=== PATIENT | female | born 1970 | race Caucasian/White ===

== ENCOUNTER 2016-04-12 23:47 | Inpatient (IN) | payer BC ==
--- NOTE | ~2016-04-12 | DS ---
Discharge Summary [facility] [address] [place]. [address] NAME: CHAD STACK : 66 STATUS : DIS IN PAT#: [id number] AGE: 46 ADM/REG DATE : 04/13/16 MR#: [id number] REPORT SERV DATE: 04/15/16 DICTATED BY: PANCHITO ANG DATE: 04/14/16 REPORT STATUS : Draft TRANSCRIBED BY: MODYaw DATE: 04/14/16 ADMISSION DATE: 04/13/2016 DISCHARGE DATE: 04/14/2016 DISCHARGE DIAGNOSES: 1. Paroxysmal atrial fibrillation, currently in sinus rhythm. 2. Hypothyroidism. CONSULTANTS DURING THIS HOSPITALIZATION: Dr. Roland Fairchild of cardiology. INVASIVE PROCEDURES DONE DURING THIS HOSPITALIZATION: None. BRIEF HISTORY OF PRESENT ILLNESS: The patient is a 46-year-old female presented with rapid atrial fibrillation in the emergency room that would not convert with carotid massage, so she was admitted. For detailed history and physical exam, please see note dictated by Betito Nicole, on 04/13/2016. HOSPITAL COURSE: After being admitted to the hospital, this patient was observed. She was initially given rate control medication including Cardizem. She was started on sotalol, and she had not been started on Synthroid. Her TSH was 0.9. Cardiology saw the patient in consultation and continued her Cardizem and then added sotalol. Once the sotalol was added, this patient converted to sinus rhythm. During this time, she was also started on Eliquis. Dr. Fairchild has seen the patient this morning and recommended that she can go home with Eliquis and sotalol. When I talked to the patient, this patient reported that she drinks quite a bit of caffeine. She was asked to scale back on her caffeine intake, and since she is noted to have a TSH that is elevated with a prior history of hypothyroidism, we have recommended that she start on Synthroid. Prescription for that in fact has been given, and she will need a primary care followup. All other parameters remained stable, and she is being discharged in stable condition. DISCHARGE DISPOSITION: Home. DISCHARGE ACTIVITY: As tolerated. DISCHARGE DIET: Low-sodium diet. DISCHARGE MEDICATIONS: Synthroid 25 mcg one tablet once daily, vitamin B12 of 100 mcg once daily, coenzyme Q10, multivitamins one tablet daily, sotalol 60 mg twice daily, Eliquis 5 mg twice daily, Krill oil per the patient's regimen, and glucosamine per the patient's regimen. DISCHARGE FOLLOWUP: With Dr. Roland Fairchild in three to four weeks, with Dr. Philippe Loyd in three to four weeks for further management of her hypothyroidism. More than 30 minutes spent planning this patient's discharge, reconciling medications, writing prescriptions, discussing hospital care, and followup with the patient and documenting this discharge. [address] Summary [address] [place] [address] NAME: CHAD STACK : 66 STATUS : DIS IN PAT#: [id number] AGE: 46 ADM/REG DATE : 04/13/16 MR#: [id number] REPORT SERV DATE: 04/15/16 DICTATED BY: PANCHITO ANG DATE: 04/14/16 REPORT STATUS : Draft TRANSCRIBED BY: LUDIN DATE: 04/14/16 JAGDISH/LUDIN Panchito Ang M.D. / [id number]
--- NOTE | ~2016-04-12 | HP ---
History And Physical [address] [place]. [address] NAME: CHAD STACK : 66 STATUS : ADM IN [facility]#: [id number] AGE: 46 ADM/REG DATE : 04/13/16 MR#: [id number] REPORT SERV DATE: 04/13/16 DICTATED BY: BETITO DAVIS DATE: 04/13/16 REPORT STATUS : Draft TRANSCRIBED BY: MODL DATE: 04/13/16 DATE OF ADMISSION: 04/12/2016 CHIEF COMPLAINT: Palpitations. HISTORY OF PRESENT ILLNESS: This is a 46-year-old lady with history of atrial fibrillation episode in the past, presenting with palpitations. The patient reports that she was going about a normal day up until 9 p.m. when she developed palpitations. The patient has had an episode of atrial fibrillation in the past and she was at that time seen and evaluated by a side boss. The patient was able to revert to normal sinus rhythm and thus the patient has not been maintained on any medications. The patient does have episodes of atrial fibrillation every once in a while that usually respond to carotid massage or bearing down. Unfortunately, this episode persisted despite carotid massage and bearing down and thus she decided to come to the ER for further evaluation and care. The patient otherwise denies having had any chest pain or shortness of breath or lightheadedness. In the ER, the patient was found to be afebrile. The patient was found to be in atrial fibrillation with RVR with heart rate in the 150s. The patient was otherwise hemodynamically stable. Initial lab evaluation was actually all very benign. EKG confirmed atrial fibrillation with RVR. Internal Medicine consultation was requested for admission of the patient for further evaluation and care. REVIEW OF SYSTEMS: The patient denies any fevers or chills. Also, 14-point review of systems reviewed and negative other than mentioned above. MEDICATIONS: None other than [id number] supplements. ALLERGIES: FLAGYL. PAST MEDICAL HISTORY: 1. Atrial fibrillation episode in the past, not maintained on any therapy. 2. Hypothyroidism in the past, again not on any medications. PAST SURGICAL HISTORY: Cholecystectomy. FAMILY HISTORY: Multiple family members have atrial fibrillation and the patient's mother in particular had 2 ablations. SOCIAL HISTORY: The patient does not smoke. Consumes alcohol socially. The patient does not use any illicit drugs. The patient lives at home with her . The patient works for [employer]. PHYSICAL EXAMINATION: VITAL SIGNS: Temperature 97.8, blood pressure 136/101, pulse 151, respiratory rate is 18, saturating 100% on room air. History And Physical [address] [address] NAME: CHAD STACK : 66 STATUS : ADM IN [facility]#: [id number] AGE: 46 ADM/REG DATE : 04/13/16 MR#: [id number] REPORT SERV DATE: 04/13/16 DICTATED BY: BETITO DAVIS DATE: 04/13/16 REPORT STATUS : Draft TRANSCRIBED BY: MODL DATE: 04/13/16 NEUROLOGIC: The patient is alert and oriented x3 with no focal neurologic deficits. GENERAL: The patient is awake, does not appear to be in acute distress, and she is cooperative. NECK: No JVD. No lymphadenopathy. Normal thyroid. CHEST: No midline sternotomy scar and no tenderness to palpation. Lungs are clear to auscultation bilaterally with normal respiratory effort on room air. CARDIOVASCULAR: The patient is tachycardic with irregular rhythm. Otherwise, no murmurs, rubs, or gallops, and PMI is nondisplaced. ABDOMEN: Soft, nontender, with active bowel sounds and no organomegaly. EXTREMITIES: No edema. Normal distal pulses. No calf tenderness. SKIN: Clean, dry, warm, and intact. LABORATORY DATA: Sodium is 144, potassium 3.7, chloride 106, BUN 18, creatinine 0.90, glucose 104, calcium 8.9, magnesium 2.0. White blood cell count is 9.1, hemoglobin 13.6, platelets 225. INR is 1.0. Troponin is less than 0.02. TSH is 9.6. D-dimer was negative and EKG confirmed an atrial fibrillation with RVR. Chest x-ray from my personal interpretation is within normal limits. ASSESSMENT: This is a 46-year-old lady with history of having had atrial fibrillation in the past, presenting with atrial fibrillation with rapid ventricular response. 1. Atrial fibrillation with rapid ventricular response. 2. Hypothyroidism, untreated. PLAN: My plan is to admit the patient under telemetry monitoring. The patient will be given IV fluid resuscitation. The patient will be maintained on Cardizem drip for now. I will check serial troponins and an echocardiogram. I will also check free T4 level. I will start heparin drip and get Cardiology to see her. Standard DVT prophylaxis. The patient is full code at this time. YSCandis/GEOVANNAL Betito Davis MD / [id number] CC: Philippe Loyd M.D. Philippe Loyd M.D.
--- NOTE | ~2016-04-12 | CN ---
Consultation Report [address] [facility] [place]. [address] NAME: CHAD FLEMING : 66 STATUS : ADM IN [facility]#: [id number] AGE: 46 ADM/REG DATE : 04/13/16 MR#: [id number] REPORT SERV DATE: 04/13/16 DICTATED BY: SVETLANA QUEZADA DATE: 04/13/16 REPORT STATUS : Draft TRANSCRIBED BY: MODL DATE: 04/13/16 CARDIOLOGY CONSULT DATE OF CONSULTATION: 04/13/[address] The patient admitted to Dr. Ang. HISTORY OF PRESENT ILLNESS: Ms Fleming is a 46-year-old white female who works for [employer]. Very strong family history of atrial fibrillation. Her mother's had two ablations with Dr. Gab Cotter. She has had short runs of atrial fibrillation over the years, but always controlled with vagal maneuvers. This episode was not controlled, and she comes in with a heart rate around 130. She does feel the palpitations, but has not had any chest discomfort. Her TSH is 9.6. Negative troponin. Negative D-dimer. She is currently on heparin and diltiazem drip. She did receive a dose of Eliquis in the ER around 1 a.m. PAST MEDICAL HISTORY: As outlined above. ALLERGIES: METRONIDAZOLE. MEDICATIONS: Include coenzyme Q10, cyanocobalamin, glucosamine, Krill oil, multivitamin. SOCIAL HISTORY: Nonsmoker. FAMILY HISTORY: For atrial fibrillation. SURGICAL HISTORY: Cholecystectomy. REVIEW OF SYSTEMS: Otherwise all negative. PHYSICAL EXAMINATION: VITAL SIGNS: Her heart rate is around 130. Her blood pressure around 130/100. GENERAL: The patient is comfortable appearing white female. Alert and oriented x3. No apparent distress. HEENT: Pupils equal, round, and reactive to light and accommodation. Extraocular muscles are intact. NECK: Supple. Trachea midline. No carotid bruits. CHEST: Clear. HEART: PMI in midclavicular line. Irregular rate and rhythm. No significant murmur. ABDOMEN: Soft, nontender. EXTREMITIES: No clubbing, cyanosis, or edema. NEURO: Nonfocal. DATA: A 12-lead EKG shows atrial fibrillation, ventricular rate of 126. The patient has an inferolateral T-wave inversion. Cannot rule out an old anterior infarct. Consultation Report [address] [place]. [address] NAME: CHAD FLEMING : 66 STATUS : ADM IN PAT#: [id number] AGE: 46 ADM/REG DATE : 04/13/16 MR#: [id number] REPORT SERV DATE: 04/13/16 DICTATED BY: SVETLANA QUEZADA DATE: 04/13/16 REPORT STATUS : Draft TRANSCRIBED BY: MODL DATE: 04/13/16 Blood work again showing negative troponin. Negative D-dimer. TSH is 9.6. CLINICAL IMPRESSIONS: 1. Atrial fibrillation, rapid ventricular response. 2. Family history of atrial fibrillation. 3. Positive caffeine and occasional alcohol. PLAN: 1. We will stop the heparin drip. 2. We will start Eliquis 5 mg twice daily. 3. We will start sotalol 80 mg twice daily. 4. We will wean diltiazem drip to off to keep heart rate less than a 100. 5. We will do a ERNESTO cardioversion in the morning if she is still in atrial fibrillation. F/LUDIN Svetlana Quezada M.D. / [id number] CC: Boogie Espinosa RICHARD
[2016-04-12 23:33] LABS: BASOPHILS 0.4 %; BASOPHILS ABSOLUTE 0.04 10/3/uL (0.0-0.16); EOSINOPHILS 2.5 %; EOSINOPHILS ABSOLUTE 0.23 10/3/uL (0.0-0.53); ER CBC TAT 0 Hrs 09 Mins; HEMATOCRIT 41.1 % (36.0-48.0); HEMOGLOBIN 13.6 g/dL (12.0-16.0); IMMATURE GRANULOCYTES 0.1 %; IMMATURE GRANULOCYTES ABSOLUTE 0.01 10/3/uL (0.0-0.11); LYMPHOCYTES 27.5 %; LYMPHOCYTES ABSOLUTE 2.49 10/3/uL (0.67-4.30); MEAN CORPUS HGB CONC 33.1 g/dL (32.0-36.0); MEAN CORPUSCULAR HEMOGLOB 29.2 pg (26.0-34.0); MEAN CORPUSCULAR VOLUME 88.2 fL (80-100); MEAN PLATELET VOLUME 10.6 fL (9.2-13.0); MONOCYTES 9.5 %; MONOCYTES ABSOLUTE 0.86 10/3/uL (0.21-1.20); NEUTROPHILS ABSOLUTE 5.44 10/3/uL (2.02-8.40); PLATELET COUNT 225 10/3/uL (150-400); RED CELL COUNT 4.66 10/6/uL (4.0-5.6); WHITE BLOOD CELLS 9.1 10/3/uL (4.5-10.5)
[2016-04-12 23:36] LABS: MANUAL DIFF NO %
[2016-04-12 23:43] LABS: PARTIAL THROMBO TIME 32.5 SEC (22.5-37.2); PROTIME (NOT ORD) 13.5 SEC (12.0-14.5)
[2016-04-12 23:46] LABS: CALCIUM, SERUM 8.9 MG/DL (8.5-10.4); CHEST PAIN PROFILE TAT 0 Hrs 22 Mins; CHLORIDE, SERUM 106 MMOL/L (96-112); CO2 (CARBON DIOXIDE) 30 MMOL/L (24-34); GFR AFRICAN AMERICAN 88 ML/MIN (>=60); GFR NON AFRICAN AMERICAN 76 ML/MIN (>=60); POTASSIUM, SERUM 3.7 MMOL/L (3.5-5.3); SODIUM, SERUM 144 MMOL/L (135-148); TROPONIN I <0.02 NG/ML (<0.05)
[~2016-04-12 23:47] MED LIST: B12100T PO; NORCO1 TA1 PO
[2016-04-12 23:48] LABS: BUN (BLOOD UREA NITROGEN) 18 MG/DL (6-23); GLUCOSE, SERUM 104 MG/DL (60-99)
[2016-04-13] MEDS ORDERED: MULTIVIT/MIN PO (01:56)
[2016-04-13] MEDS ORDERED: CO Q-10100 MG PO (01:56)
[2016-04-13] MEDS ORDERED: KRILLOIL (01:57)
[2016-04-13] MEDS ORDERED: GLUCOSAMINEPO (01:58)
[2016-04-13 07:17] LABS: BASOPHILS 0.2 %; BASOPHILS ABSOLUTE 0.02 10/3/uL (0.0-0.16); EOSINOPHILS 1.2 %; EOSINOPHILS ABSOLUTE 0.12 10/3/uL (0.0-0.53); HEMATOCRIT 41.1 % (36.0-48.0); HEMOGLOBIN 13.9 g/dL (12.0-16.0); IMMATURE GRANULOCYTES 0.1 %; IMMATURE GRANULOCYTES ABSOLUTE 0.01 10/3/uL (0.0-0.11); LYMPHOCYTES 28.3 %; LYMPHOCYTES ABSOLUTE 2.86 10/3/uL (0.67-4.30); MEAN CORPUS HGB CONC 33.8 g/dL (32.0-36.0); MEAN CORPUSCULAR HEMOGLOB 29.6 pg (26.0-34.0); MEAN CORPUSCULAR VOLUME 87.4 fL (80-100); MEAN PLATELET VOLUME 10.9 fL (9.2-13.0); MONOCYTES ABSOLUTE 0.61 10/3/uL (0.21-1.20); NEUTROPHILS 64.2 %; NEUTROPHILS ABSOLUTE 6.47 10/3/uL (2.02-8.40); PLATELET COUNT 249 10/3/uL (150-400); RBC DISTRIBUTION WIDTH 12.8 % (12.0-16.0); WHITE BLOOD CELLS 10.1 10/3/uL (4.5-10.5)
[2016-04-13 07:18] LABS: MANUAL DIFF NO %
[2016-04-13 07:39] LABS: CALCIUM, SERUM 8.7 MG/DL (8.5-10.4); CHLORIDE, SERUM 109 MMOL/L (96-112); CO2 (CARBON DIOXIDE) 26 MMOL/L (24-34); CREATININE 0.72 MG/DL (0.55-1.02); FREE T4 1.07 NG/DL (0.76-1.46); GFR AFRICAN AMERICAN 115 ML/MIN (>=60); GFR NON AFRICAN AMERICAN 99 ML/MIN (>=60); GLUCOSE, SERUM 112 MG/DL (60-99); POTASSIUM, SERUM 3.6 MMOL/L (3.5-5.3); SODIUM, SERUM 144 MMOL/L (135-148); TROPONIN I <0.02 NG/ML (<0.05)
[2016-04-13 07:40] LABS: BUN (BLOOD UREA NITROGEN) 11 MG/DL (6-23)
[2016-04-13 09:21] LABS: INTERNATIONAL NORMAL RATI 1.2 UNITS (-)
[2016-04-14 05:04] LABS: BASOPHILS 0.5 %; BASOPHILS ABSOLUTE 0.03 10/3/uL (0.0-0.16); EOSINOPHILS ABSOLUTE 0.25 10/3/uL (0.0-0.53); HEMATOCRIT 37.2 % (36.0-48.0); HEMOGLOBIN 12.5 g/dL (12.0-16.0); LYMPHOCYTES 40.1 %; LYMPHOCYTES ABSOLUTE 2.53 10/3/uL (0.67-4.30); MEAN CORPUS HGB CONC 33.6 g/dL (32.0-36.0); MEAN CORPUSCULAR HEMOGLOB 29.6 pg (26.0-34.0); MEAN CORPUSCULAR VOLUME 88.2 fL (80-100); MEAN PLATELET VOLUME 10.8 fL (9.2-13.0); MONOCYTES 8.6 %; MONOCYTES ABSOLUTE 0.54 10/3/uL (0.21-1.20); NEUTROPHILS 46.8 %; NEUTROPHILS ABSOLUTE 2.96 10/3/uL (2.02-8.40); PLATELET COUNT 190 10/3/uL (150-400); RED CELL COUNT 4.22 10/6/uL (4.0-5.6); WHITE BLOOD CELLS 6.3 10/3/uL (4.5-10.5)
[2016-04-14 05:05] LABS: MANUAL DIFF NO %
[2016-04-14 05:22] LABS: CALCIUM, SERUM 8.5 MG/DL (8.5-10.4); CHLORIDE, SERUM 110 MMOL/L (96-112); CO2 (CARBON DIOXIDE) 26 MMOL/L (24-34); CPK 80 U/L (0-200); CREATININE 0.75 MG/DL (0.55-1.02); GFR AFRICAN AMERICAN 109 ML/MIN (>=60); GFR NON AFRICAN AMERICAN 94 ML/MIN (>=60); GLUCOSE, SERUM 96 MG/DL (60-99); PHOSPHORUS, SERUM 2.7 MG/DL (2.5-4.5); POTASSIUM, SERUM 3.7 MMOL/L (3.5-5.3); SODIUM, SERUM 144 MMOL/L (135-148); TROPONIN I <0.02 NG/ML (<0.05)
[2016-04-14 05:23] LABS: ALBUMIN 2.8 G/DL (3.5-5.0); BUN (BLOOD UREA NITROGEN) 15 MG/DL (6-23); CK-MB < 0.5 NG/ML
[2016-04-14] MEDS ORDERED: ELIQUIS 5 MG TAB5 MG PO (12:34)
[2016-04-14] MEDS ORDERED: BETAP120 PO (12:35)
[2016-04-14] MEDS ORDERED: SYN.025B PO (12:36)
== END 2016-04-14 14:14 | disposition home or self-care (01) | DRG 310 ==
LOC: ER 23:47 → 6NO 04-13 03:01
PROVIDERS: Internal Medicine; Nurse Practitioner
DX: I48.0 Paroxysmal atrial fibrillation (principal); E03.9 Hypothyroidism, unspecified; Z90.49 Acquired absence of other specified parts of digestive tract
CPT/HCPCS: 71010; 80048; 80069; 82550; 82553; 83735; 83880; 84100; 84439; 84443; 84484; 84703; 85025; 85379; 85610; 85730; 93005; 93306; 96374; 96375; 96376; 99291; A9270-GY